=== PATIENT | male | born 1950 | race Caucasian/White ===

== ENCOUNTER → 2020-02-22 10:52 | Outpatient (BNVA) | payer MEDICARE, SELFPAY | PROVIDERS: Visit Provider Family Medicine | DX: E11.9 Type 2 diabetes mellitus without complications (principal); E11.628 Type 2 diabetes mellitus with other skin complications; L03.119 Cellulitis of unspecified part of limb; L97.509 Non-pressure chronic ulcer of other part of unspecified foot with unspecified severity; E11.621 Type 2 diabetes mellitus with foot ulcer; L08.9 Local infection of the skin and subcutaneous tissue, unspecified | CPT/HCPCS: 36415; 80053; 83036; 85025; 87070; 87077; 87184; 87205 ==

== ENCOUNTER 2020-02-26 09:47 | Outpatient (CLI) | payer MEDICARE, SELFPAY ==
--- NOTE | 2020-02-26 12:14 | XR_ITS ---
WS: [id number] Exam: XR foot LT min 3V* [id number] Date/Time of Exam: 02/26/2020 12:14 PM Reason For Exam: PAIN/REDNESS/NONHEALING ULCER AP lateral and oblique views of the left foot are submitted. There is dislocation of the base of the proximal phalanx of the fifth toe. No acute fracture noted. A reas of bone destruction identified in the distal fifth metatarsal as well as the proximal aspect of the proximal phalanx of the fifth toe suspicious for osteomyelitis. There is soft tissue swelling as well as soft tissue air along the fifth toe. No other areas of bone destruction are identified. Large calcaneal spurs. Soft tissue edema and air also extend along the dorsum of the mid foot. XR/XR foot LT min 3V* [id number] IMPRESSION: 1. Dislocation of the MP joint of the fifth toe. 2. Bony destruction identified at the proximal end of the proximal phalanx of the fifth toe as well as the head of the fifth metatarsal suspicious for osteom yelitis. There is marked soft tissue swelling about the fifth toe with soft tis stuart air as noted above.
== END 2020-02-26 09:48 | disposition home or self-care (01) ==
PROVIDERS: Visit Provider Nurse Practitioner Family
DX: E11.621 Type 2 diabetes mellitus with foot ulcer (principal); L97.523 Non-pressure chronic ulcer of other part of left foot with necrosis of muscle; M79.672 Pain in left foot
CPT/HCPCS: 11042; 73630; G0463

== ENCOUNTER 2020-03-04 09:08 | Outpatient (CLI) | payer MEDICARE, SELFPAY | END 2020-03-04 09:09 | disposition home or self-care (01) | LOC: WOUND 09:13 | PROVIDERS: Visit Provider Nurse Practitioner Family | DX: E11.621 Type 2 diabetes mellitus with foot ulcer (principal); L97.526 Non-pressure chronic ulcer of other part of left foot with bone involvement without evidence of necrosis | CPT/HCPCS: 11042; L3260 ==

== ENCOUNTER → 2020-03-05 08:45 | Day surgery (SDC) | payer MEDICARE, SELFPAY ==
--- NOTE | 2020-03-05 09:43 | XR_ITS ---
WS: [id number] CHEST XRAY TECHNIQUE: Portable chest. CLINICAL INFORMATION: picc placement COMPARISON: None. FINDINGS: Right PICC line with tip in the mid to distal SVC. No pneumothorax. Heart: Cardiomegaly. Lungs: Lungs are clear. No consolidation or pleural effusion. Bones: Normal visualized bony structures. XR/XR chest 1V portable [id number] IMPRESSION: Right PICC line with tip in the mid to distal SVC. No pneumothorax.
[2020-03-05 10:57] LABS: Alanine Aminotransferase 11 U/L (0-41); Albumin Level 3.6 g/dL (3.5-5.2); Alkaline Phosphatase 85 IU/L (40-130); Anion Gap 15.8 (5-19); Aspartate Amino Transferase 16 U/L (0-40); Blood Urea Nitrogen 12 mg/dL (8-23); Calcium 9.5 mg/dL (8.5-10.5); Carbon Dioxide 26 mmol/L (22-29); Chloride 100 mmol/L (98-107); Globulin 4.2 g/dL (1.3-4.6); Glomerular Filtration Rate 134.4 mL/min (90-130); Glucose 117 mg/dL (65-115); Osmolality Calculated 287 mOsm/kg (285-295); Potassium 3.8 mmol/L (3.5-5.1); Sodium 138 mmol/L (136-145); Total Bilirubin 0.7 mg/dL (0.15-1.2); Total Protein 7.8 g/dL (6.6-8.7)
[2020-03-05] MEDS: SODIUM CHLORIDE 0.9% IV (11:35)
[2020-03-05] MEDS: DAPTOMYCIN IV (11:35)
[2020-03-05 12:15] VITALS: BP 149/87; PULSE 118; RESP 18; TEMP 37.4; O2SAT 98; BMI 40.6
== END ==
PROVIDERS: Visit Provider Nurse Practitioner Family
DX: L97.526 Non-pressure chronic ulcer of other part of left foot with bone involvement without evidence of necrosis (principal); E11.621 Type 2 diabetes mellitus with foot ulcer
CPT/HCPCS: 36569; 36592; 71045; 80053; 96365; J0878

== ENCOUNTER 2020-03-11 09:13 | Outpatient (CLI) | payer MEDICARE, SELFPAY | END 2020-03-11 09:14 | disposition home or self-care (01) | LOC: WOUND 09:14 | PROVIDERS: Visit Provider Nurse Practitioner Family | DX: E11.621 Type 2 diabetes mellitus with foot ulcer (principal); L97.526 Non-pressure chronic ulcer of other part of left foot with bone involvement without evidence of necrosis | CPT/HCPCS: 11042 ==

== ENCOUNTER 2020-03-15 10:48 | Outpatient (CLI) | payer MEDICARE, SELFPAY ==
--- NOTE | 2020-03-15 10:57 | USCV_ITS ---
Richmond Viera Age: 69 Gender: M : 1950 Exam Date: 03/15/2020 11:03 Ordering Phys: Victorina Campos Technologist: Marlene Knowles [place] [facility] [place]ication: HISTORY: Lower extremity pain. PROCEDURES: Bilateral duplex Venous Insufficiency study of the Deep and Superficial systems was carried out according to normal protocol with the patient in supine positon for deep system and dependent position for the superficial system. FINDINGS: The right lower leg appears negative for thrombus. Reflux was noted in the proximal, distal, and below knee right GSV. There appears to be remains of an old thrombus in the proximal and mid left SSV. All other veins imaged in the left leg appear negative of thrombus. Reflux was noted in the left GSV distal to SFJ. The small saphenous vein on the left side appears to have thick johnston with some linear densities CONCLUSIONS 1. No evidence of DVT in the above-mentioned identifiable veins. 2. Significant venous reflux of greater than 500 ms were noted at the proximal, distal and below-knee greater saphenous vein segments on the right side. These venous segments where to 1.83, 1.09 and 1.04 cm deep from the surface. These venous segments where measuring 0.36 to 0.45 cm in diameter 3. On the left side, significant venous reflux of greater than 500 ms were noted just distal to the saphenofemoral junction. This segment was 1.9 cm deep from the surface 4. The venous dimensions and the depth from the surface are as mentioned above 5. The venous segments on the right side may be too superficial for ablation ? Dr Jaime Rogers MD [facility] (Electronically Signed) Final Date: 16 March 2020 18:26 S
== END 2020-03-15 10:49 | disposition home or self-care (01) ==
LOC: RAD 10:52 → WOUND 10:54
PROVIDERS: Visit Provider Nurse Practitioner Family
DX: M79.604 Pain in right leg (principal); M79.605 Pain in left leg; I87.2 Venous insufficiency (chronic) (peripheral)
CPT/HCPCS: 93970

== ENCOUNTER 2020-03-18 13:18 | Outpatient (CLI) | payer MEDICARE, SELFPAY ==
--- NOTE | 2020-03-18 14:21 | USCV_ITS ---
Richmond Viera Age: 69 Gender: M : 1950 Exam Date: 03/18/2020 14:15 Ordering Phys: Victoirna Campos Technologist: Vasquez Ibarra [place] [facility] [place]ication: NON HEALING ULCER RIGHT LEFT Brachial mmHg Brachial 117.00 mmHg Pressure (mmHg) Waveform Pressure (mmHg) Waveform 134.00 Above Knee 148.00 140.00 Below Knee 147.00 131.00 LEAD AUDITOR 143.00 130.00 DPA 129.00 1.12 Ankle/Brachial Index 1.22 101.00 Pre-Exercise Toe Pressure 95.00 Pre-Exercise Toe/Brachial Index 0.81 0.86 FINDINGS Normal resting ABIs and TBIs bilaterally Normal segmental pressure CONCLUSIONS No significant arterial obstruction, based on the above findings Dr Jaime Rogers MD [facility] (Electronically Signed) Final Date: 18 March 2020 17:46 S
== END 2020-03-18 13:19 | disposition home or self-care (01) ==
LOC: WOUND 13:20
PROVIDERS: Visit Provider Nurse Practitioner Family
DX: E11.621 Type 2 diabetes mellitus with foot ulcer (principal); L97.526 Non-pressure chronic ulcer of other part of left foot with bone involvement without evidence of necrosis
CPT/HCPCS: 11042; 93923

== ENCOUNTER 2020-03-25 13:48 | Outpatient (CLI) | payer MEDICARE, SELFPAY | END 2020-03-25 13:49 | disposition home or self-care (01) | LOC: WOUND 13:49 | PROVIDERS: Visit Provider Nurse Practitioner Family | DX: E11.621 Type 2 diabetes mellitus with foot ulcer (principal); L97.523 Non-pressure chronic ulcer of other part of left foot with necrosis of muscle | CPT/HCPCS: 11042 ==

== ENCOUNTER 2020-04-01 12:51 | Outpatient (CLI) | payer MEDICARE, SELFPAY | END 2020-04-01 12:52 | disposition home or self-care (01) | LOC: WOUND 12:52 | PROVIDERS: Visit Provider Nurse Practitioner Family | DX: E11.621 Type 2 diabetes mellitus with foot ulcer (principal); L97.522 Non-pressure chronic ulcer of other part of left foot with fat layer exposed | CPT/HCPCS: 11042 ==

== ENCOUNTER 2020-04-08 11:27 | Outpatient (CLI) | payer MEDICARE, SELFPAY ==
--- NOTE | 2020-04-08 11:34 | XR_ITS ---
WS: [id number] FOOT LEFT TECHNIQUE: 3 views of the left foot CLINICAL INFORMATION: wound COMPARISON: February 26, 2020 FINDINGS: Osteopenia. Progressed destructive changes involving the fifth metatarsal head and neck since the manoj or examination consistent with osteomyelitis. Overlying soft tissue ulceration. Plantar and Achilles calcaneal spurring. Dorsal and plantar soft tissue edema. XR/XR foot LT min 3V* [id number] IMPRESSION: Progressed osteomyelitis involving the fifth metatarsal head and neck
== END 2020-04-08 11:28 | disposition home or self-care (01) ==
LOC: RADWPI 11:31
PROVIDERS: PCP Family Medicine; Visit Provider Podiatrist Foot & Ankle Surgery
DX: L97.522 Non-pressure chronic ulcer of other part of left foot with fat layer exposed (principal); M86.8X7 Other osteomyelitis, ankle and foot; E11.622 Type 2 diabetes mellitus with other skin ulcer
CPT/HCPCS: 11042; 73630

== ENCOUNTER 2020-04-08 13:03 | Outpatient (CLI) | payer MEDICARE, SELFPAY | END 2020-04-08 13:04 | disposition home or self-care (01) | LOC: WOUND 13:04 | PROVIDERS: PCP Family Medicine; Visit Provider Nurse Practitioner Family | DX: E11.621 Type 2 diabetes mellitus with foot ulcer (principal); L97.522 Non-pressure chronic ulcer of other part of left foot with fat layer exposed | CPT/HCPCS: 11042 ==

== ENCOUNTER 2020-04-22 10:50 | Outpatient (CLI) | payer MEDICARE, SELFPAY | END 2020-04-22 10:51 | disposition home or self-care (01) | LOC: WOUND 10:51 | PROVIDERS: PCP Family Medicine; Visit Provider Nurse Practitioner Family | DX: E11.621 Type 2 diabetes mellitus with foot ulcer (principal); L97.522 Non-pressure chronic ulcer of other part of left foot with fat layer exposed | CPT/HCPCS: 11042 ==

== ENCOUNTER 2020-04-29 10:27 | Outpatient (CLI) | payer MEDICARE, SELFPAY | END 2020-04-29 10:28 | disposition home or self-care (01) | LOC: WOUND 10:27 | PROVIDERS: PCP Family Medicine; Visit Provider Nurse Practitioner Family | DX: E11.621 Type 2 diabetes mellitus with foot ulcer (principal); L97.522 Non-pressure chronic ulcer of other part of left foot with fat layer exposed | CPT/HCPCS: 11042 ==

== ENCOUNTER 2020-05-06 10:21 | Outpatient (CLI) | payer MEDICARE, SELFPAY | END 2020-05-06 10:22 | disposition home or self-care (01) | LOC: WOUND 10:22 | PROVIDERS: PCP Family Medicine; Visit Provider Nurse Practitioner Family | DX: E11.621 Type 2 diabetes mellitus with foot ulcer (principal); L97.522 Non-pressure chronic ulcer of other part of left foot with fat layer exposed | CPT/HCPCS: 11042 ==

== ENCOUNTER 2020-05-13 10:55 | Outpatient (CLI) | payer MEDICARE, SELFPAY | END 2020-05-13 10:56 | disposition home or self-care (01) | LOC: WOUND 10:56 | PROVIDERS: PCP Family Medicine; Visit Provider Nurse Practitioner Family | DX: E11.621 Type 2 diabetes mellitus with foot ulcer (principal); L97.522 Non-pressure chronic ulcer of other part of left foot with fat layer exposed | CPT/HCPCS: 11042 ==

== ENCOUNTER 2020-05-27 10:16 | Outpatient (CLI) | payer MEDICARE, SELFPAY | END 2020-05-27 10:17 | disposition home or self-care (01) | LOC: WOUND 10:17 | PROVIDERS: PCP Family Medicine; Visit Provider Nurse Practitioner Family | DX: Z09 Encounter for follow-up examination after completed treatment for conditions other than malignant neoplasm (principal) | CPT/HCPCS: 99212 ==

== ENCOUNTER → 2020-06-10 14:30 | Outpatient (BNVA) | payer MEDICARE, SELFPAY | PROVIDERS: PCP Family Medicine; Visit Provider Podiatrist Foot & Ankle Surgery | DX: L97.522 Non-pressure chronic ulcer of other part of left foot with fat layer exposed (principal) | CPT/HCPCS: 73630 ==

== ENCOUNTER 2020-06-11 13:51 | Outpatient (CLI) | payer MEDICARE, SELFPAY | END 2020-06-11 13:52 | disposition home or self-care (01) | LOC: WOUND 13:53 | PROVIDERS: PCP Family Medicine; Visit Provider Thoracic Surgery (Cardiothoracic Vascular Surgery) | DX: E11.621 Type 2 diabetes mellitus with foot ulcer (principal); L97.522 Non-pressure chronic ulcer of other part of left foot with fat layer exposed | CPT/HCPCS: 11042 ==

== ENCOUNTER 2020-06-25 10:47 | Outpatient (CLI) | payer MEDICARE, SELFPAY | END 2020-06-25 10:48 | disposition home or self-care (01) | LOC: WOUND 10:48 | PROVIDERS: PCP Family Medicine; Visit Provider Nurse Practitioner Family | DX: E11.621 Type 2 diabetes mellitus with foot ulcer (principal); L97.522 Non-pressure chronic ulcer of other part of left foot with fat layer exposed | CPT/HCPCS: 11042 ==

== ENCOUNTER 2020-07-02 09:32 | Outpatient (CLI) | payer MEDICARE, SELFPAY | END 2020-07-02 09:33 | disposition home or self-care (01) | LOC: WOUND 09:33 | PROVIDERS: PCP Family Medicine; Visit Provider Thoracic Surgery (Cardiothoracic Vascular Surgery) | DX: Z09 Encounter for follow-up examination after completed treatment for conditions other than malignant neoplasm (principal) | CPT/HCPCS: 99212 ==

== ENCOUNTER → 2020-07-05 15:52 | Outpatient (BNVA) | payer MEDICARE, SELFPAY | PROVIDERS: PCP Family Medicine; Visit Provider Podiatrist Foot & Ankle Surgery | DX: M86.672 Other chronic osteomyelitis, left ankle and foot (principal); E11.628 Type 2 diabetes mellitus with other skin complications; L03.119 Cellulitis of unspecified part of limb; E11.621 Type 2 diabetes mellitus with foot ulcer; L97.509 Non-pressure chronic ulcer of other part of unspecified foot with unspecified severity | CPT/HCPCS: 73630 ==

== ENCOUNTER → 2020-07-08 10:17 | Outpatient (BNVA) | payer MEDICARE, SELFPAY | PROVIDERS: PCP Family Medicine; Visit Provider Podiatrist Foot & Ankle Surgery | DX: E11.621 Type 2 diabetes mellitus with foot ulcer (principal); E11.628 Type 2 diabetes mellitus with other skin complications; L03.119 Cellulitis of unspecified part of limb; L97.509 Non-pressure chronic ulcer of other part of unspecified foot with unspecified severity; M86.672 Other chronic osteomyelitis, left ankle and foot | CPT/HCPCS: 87635 ==

== ENCOUNTER 2020-07-12 15:37 | Day surgery (SDC) | payer MEDICARE, SELFPAY ==
[2020-07-11 16:43] VITALS: BMI 39.9
[2020-07-12] VITALS (9 sets, daily range): BP systolic 89–136; BP diastolic 61–100; PULSE 68–96; RESP 16–20; TEMP 36.4–37; O2SAT 94–99
[2020-07-12 09:42] LABS: Glucose Point of Care 136 mg/dL (70-110)
--- NOTE | 2020-07-12 09:57 | ANES.PREANE2 ---
Pre-Anesthetic Assessment Pre-Anesthetic Assessment: Height/Weight: Height 1.75 m Weight 122.47 kg Temp Pulse Resp BP Pulse Ox 98.6 F 96 18 136/100 96 07/12/20 09:45 07/12/20 09:45 07/12/20 09:45 07/12/20 09:45 07/12/20 09:45 Preop Diagnosis: Osteomyelitis left foot Proposed Procedure: Operation Date: 07/12/20 10:45 Proposed Procedures p Left fifth toe amputation versus resection of left fifth metatarsal head/ CPT codes: 13626 versus possible 52541 M86.672(Left) - Marc Samaniego, DPM Was Beta Mishel taken within 24 hours: N/A Last intake: Intake Last Liquid Date 07/11/20 Last Liquid Time 22:00 Last Solid Date 07/11/20 Last Solid Time 22:00 Social: Social History: No alcohol and No tobacco (h/o smoking) Exam: Pre-Anes Outpt Exam: alert, oriented x 3, clear to auscultation bilaterally and regular rate & rhythm Airway: Submandibular: WNL Cervical ROM: WNL MP: 2 Additional comments: Poor dentition, missing several Pulmonary: Pulmonary: COPD CV/HEM: CV/HEM: Afib and HTN Metabolic: Metabolic: DM and Morbid obesity Anesthetic Plan: ASA status: 3 Anesthesia: MAC Risk of > 500 ml blood loss (7ml/kg in children): No PFSH Anesthesia PFSH: Medical History Hypertension Neuropathy Surgical History H/O umbilical hernia repair with mesh History of appendectomy History of cholecystectomy History of colon resection History of tonsillectomy Social History Smoking and tobacco status: former smoker Quit status (tobacco): has quit using tobacco Year quit tobacco: 1979 Alcohol intake: never Data Anesthesia Other Labs: Laboratory Results - last 48 hr 07/12/20 09:39 POC Glucose 136 H Cardiac Studies: No Data to Display
[2020-07-12] MEDS: sodium chloride 0.9% 1,000 ML 30 ML IV (09:59)
--- NOTE | 2020-07-12 12:32 | P.HPUD_ITS ---
Surgery/Procedure H&P Update DATE OF PROCEDURE: July 12, 2020 DATE H&P PERFORMED: 07/05/20 H&P UPDATE INFORMATION: I have reviewed H&P completed within last 30 days, I have examined patient prior to procedure, No changes to prior documentation and H&P is in [facility] [place] EMR on date indicated PREOP DIAGNOSIS: Osteomyelitis left foot PLANNED PROCEDURE: Operation Date: 07/12/20 10:45 Proposed Procedures p Left fifth toe amputation versus resection of left fifth metatarsal head/ CPT codes: 81653 versus possible 33649 M86.672(Left) - Marc Samaniego DPM
[2020-07-12] MEDS: clindamycin 600 MG/50 ML PREMIX 25 MG IV (13:05)
--- NOTE | 2020-07-12 14:36 | ANE.PACU2 ---
Inpatient post-anesthesia follow up: Airway intact: Yes Vital signs: Temperature 97.5 F Pulse Rate 89 Respiratory Rate 18 Blood Pressure 115/85 Pulse Oximetry 99 Oxygen Delivery Me thod Room Air Oxygen Flow Rate 6 Fraction of Inspir ed Oxygen Hydration adequate: Yes Nausea and vomiting: No Pain level: 1 Mental status: Baseline
--- NOTE | 2020-07-12 18:23 | P.OP_ITS ---
Operative Report Date of procedure: July 12, 2020 Pre-op Diagnosis: Osteomyelitis left foot Post-op diagnosis: same Post-op Findings: Devitalized soft tissue and bone down to and including fifth metatarsal head left foot Procedure Done: Amputation of left fifth toe and left fifth metatarsal head CPT code 38550 Implants: 4-0 Vicryl, 3-0 nylon. Specimens removed/disposition: Left fifth metatarsal head sent to microbiology for Gram stain and culture Pathology: Left fifth toe sent to pathology for permanent. Surgeon: Marc Samaniego D.P.M. Spectrographic Analyst: Ashanti Estimated blood loss: Less than 10 mL Tourniquet time: 15 minutes IV fluids: None Urine output: None Complications: None Findings: Devitalized fifth metatarsal head with clean margin at resection. Condition: stable Disposition: PACU Brief History: Patient is a diabetic male with recalcitrant wound subfifth metatarsal head left foot and osteomyelitis of left fifth metatarsal head. Recommended partial fifth ray amputation surgical offloading as well as eradication of infection. Patient is agreeable. Risks include pain, bleeding, numbness, infection, persistent osteomyelitis. Need for higher level of amputation, transfer pressure, transfer lesion, the fourth metatarsal head. Disfigurement of the foot. Inherent risks of anesthesia. Patient is agreeable wishes to proceed. Informed consent is signed, initialed patient's left foot, answered all questions to patient satisfaction wishes to proceed. He is written, expressed or implied. Procedure: Under mild sedation the patient is brought to the operating room and placed on the operating table in supine position. A timeout was performed. Anesthesia was then administered by the anesthesia service. Local anesthesia injected by myself consisting of 0.5% Marcaine plain and a reverse Agudelo block fashion to the left foot. Well-padded pneumatic tourniquet was applied to the left high calf. Left lower extremity was then scrubbed, prepped and draped utilizing normal aseptic technique. Left foot was elevated and the tourniquet was inflated to 250 mmHg. Attention was directed to the left foot fifth toe where a tennis racquet incision was carried out down to bone at the distal aspect of the left fifth metatarsal encompassing the base of the left fifth toe this was then disarticul ated at the metatarsophalangeal joint passed from operative field this will be sent to pathology for permanent. Head of the fifth metatarsal was then transected beveling the edge to reduce bony prominence fifth metatarsal head was sent to microbiology for Gram stain and culture. Incision site was flushed with copious amounts of sterile saline solution. All bleeders were ligated and cauterized as necessary. Subcutaneous tissue and deep fascia reapproximated utilizing 3-0 Vicryl. Skin reapproximated utilizing 3-0 nylon. Incision site was dressed with Adaptic, sterile 4 x 4, Kerlix and Vicente wrap. Cam boot was then applied to the left lower extremity. Tourniquet was deflated and a prompt hyperemic response was noted to the distal digits of the left foot toes 1 through 4. Patient tolerated procedure and anesthesia well and was transferred to the PACU with vital signs stable and vascular status intact. He was given a prescription for hydrocodone to be taken judiciously as needed for pain states that he will likely not fill this prescription due to underlying neuropathy. He is dispensed crutches and is to be nonweightbearing to the left foot at this time. He will follow up in podiatry clinic next week for first dressing change was given my cell phone number to contact with any postoperative questions or concerns.
== END 2020-07-12 16:00 | disposition home or self-care (01) ==
LOC: OR 15:37
PROVIDERS: PCP Family Medicine; Visit Provider Podiatrist Foot & Ankle Surgery
PROC: (CPT 28810; principal; 2020-07-12 10:45)
DX: M86.8X7 Other osteomyelitis, ankle and foot (principal); J44.9 Chronic obstructive pulmonary disease, unspecified; I48.91 Unspecified atrial fibrillation; I10 Essential (primary) hypertension; E11.9 Type 2 diabetes mellitus without complications; E66.01 Morbid (severe) obesity due to excess calories; Z68.39 Body mass index [BMI] 39.0-39.9, adult
CPT/HCPCS: 28810; 36416; 82962; 87070; 87176; 87205; 88305; J2250; J2704; J3010; J3490; J7030; L4361

== ENCOUNTER 2020-07-19 10:58 | Outpatient (CLI) | payer MEDICARE, SELFPAY ==
--- NOTE | 2020-07-19 11:12 | XR_ITS ---
WS: [id number] XR foot LT min 3V* [id number] REASON FOR EXAM: post op FINDINGS: Compared to previous examination of 07/05/2020, there has been amputation of the left fifth toe with re moval of the phalanges and the distal half of the fifth metatarsal. No bony fragments or other radiop aque soft tissue abnormality at the amputation site. No other focal bony abnormality. Mild degenerative changes in the remaining toes. XR/XR foot LT min 3V* [id number] IMPRESSION: Status post amputation left fifth toe as above.
== END 2020-07-19 10:59 | disposition home or self-care (01) ==
LOC: RAD 11:06
PROVIDERS: PCP Family Medicine; Visit Provider Podiatrist Foot & Ankle Surgery
DX: Z98.890 Other specified postprocedural states (principal); Z89.422 Acquired absence of other left toe(s)
CPT/HCPCS: 73630

== ENCOUNTER → 2020-07-26 15:11 | Outpatient (BNVA) | payer MEDICARE, SELFPAY | PROVIDERS: PCP Family Medicine; Visit Provider Podiatrist Foot & Ankle Surgery | DX: Z98.890 Other specified postprocedural states (principal) | CPT/HCPCS: 73630 ==

== ENCOUNTER → 2021-02-13 07:49 | Outpatient (BNVA) | payer MEDICARE, SELFPAY | PROVIDERS: PCP Family Medicine; Visit Provider Family Medicine | DX: I73.9 Peripheral vascular disease, unspecified (principal); E11.628 Type 2 diabetes mellitus with other skin complications; L03.119 Cellulitis of unspecified part of limb; E11.621 Type 2 diabetes mellitus with foot ulcer; L97.509 Non-pressure chronic ulcer of other part of unspecified foot with unspecified severity; M79.89 Other specified soft tissue disorders; I83.012 Varicose veins of right lower extremity with ulcer of calf; L97.212 Non-pressure chronic ulcer of right calf with fat layer exposed; I48.91 Unspecified atrial fibrillation | CPT/HCPCS: 80053 ==

== ENCOUNTER → 2021-03-10 14:02 | Outpatient (BNVA) | payer MEDICARE, SELFPAY | PROVIDERS: PCP Family Medicine; Visit Provider Family Medicine | DX: I50.9 Heart failure, unspecified (principal); E11.621 Type 2 diabetes mellitus with foot ulcer; L97.509 Non-pressure chronic ulcer of other part of unspecified foot with unspecified severity; I83.012 Varicose veins of right lower extremity with ulcer of calf; L97.212 Non-pressure chronic ulcer of right calf with fat layer exposed; I73.9 Peripheral vascular disease, unspecified; I48.21 Permanent atrial fibrillation; E11.9 Type 2 diabetes mellitus without complications; E11.628 Type 2 diabetes mellitus with other skin complications; L03.119 Cellulitis of unspecified part of limb | CPT/HCPCS: 83036; 85025 ==

== ENCOUNTER 2021-06-18 09:44 | Outpatient (CLI) | payer MEDICARE, SELFPAY ==
--- NOTE | 2021-06-18 10:15 | USCV_ITS ---
Richmond Viera Age: 70 Gender: M : 1950 Exam Date: 06/18/2021 10:19 Ordering Phys: Britton Jessica M.D ([email or web address]) Technologist: Exam Location: [facility] [place] Indication: AFIB BP: 190 / 100 HR: 43 Rhythm: Atrial fibrillation Technical Quality: Adequate MEASUREMENTS (Male / Female) Normal Values 2D ECHO LV Diastolic Diameter PLAX 5.3 cm 4.2 - 5.9 / 3.9 - 5.3 cm LV Systolic Diameter PLAX 4.7 cm IVS Diastolic Thickness 1.7 cm 0.6 - 1.0 / 0.6 - 0.9 cm IVS Systolic Thickness 1.4 cm LVPW Diastolic Thickness 1.6 cm 0.6 - 1.0 / 0.6 - 0.9 cm LVPW Systolic Thickness 1.0 cm LVOT Diameter 2.1 cm LV Ejection Fraction 2D Teich 33.9 % LV Ejection Fraction MOD 2C 22.9 % LV Ejection Fraction 2C AL 23.3 % LA Diameter 4.7 cm Aorta at Sinotubular Diameter 2.5 cm M-MODE Aortic Annulus Diameter 2.5 cm LA Ao Ratio MM 1.9 MV E Point Septal Separation 1.6 cm DOPPLER AV Peak Velocity 101.0 cm/s LVOT Peak Velocity 52.0 cm/s AV Area Cont Eq vti 1.3 cm squared AV Area Cont Eq pk 1.7 cm squared MV Area PHT 5.8 cm squared Mitral E to A Ratio 4.0 MV E' Velocity 53.0 cm/s Mitral E to MV E' Ratio 17.6 Mitral E to LV E' Lateral Ratio 15.2 Mitral E to LV E' Septal Ratio 21.5 TR Peak Velocity 250.0 cm/s TR Peak Gradient 25.0 mmHg TV Peak E Velocity 87.0 cm/s Right Atrial Pressure 8.0 mmHg Pulmonary Artery Systolic Pressu 33.0 mmHg PV Peak Velocity 78.0 cm/s RV Acceleration Time 0.1 s FINDINGS Left Ventricle Normal left ventricular size. LV systolic function is mildly reduced with EF of 45-50%. Mild global hypokinesis is seen. Diastolic function is indeterminate because of atrial fibrillation Right Ventricle The right ventricle is normal in size and function. Right Atrium The right atrium is normal in size. Left Atrium The left atrium is severely dilated Mitral Valve Structurally normal mitral valve without significant stenosis or prolapse. There is mild mitral regurgitation. Aortic Valve Structurally normal aortic valve without significant sclerosis or stenosis. There is no aortic regurgitation. Tricuspid Valve Structurally normal tricuspid valve without significant stenosis. Trace tricuspid regurgitation. Insufficient TR jet to calculate RVSP Pulmonic Valve Structurally normal pulmonic valve without significant stenosis. There is no pulmonic regurgitation. Pericardium Normal pericardium without effusion. Aorta Normal ascending aorta dimension. CONCLUSIONS LV systolic function is mildly reduced with EF of 45-50%. Mild global hypokinesis. Diastolic function is indeterminate because of atrial fibrillation Left atrium is severely enlarged Mild mitral regurgitation Trace tricuspid regurgitation. Insufficient TR jet to calculate RVSP No comparison studies are available Britton Jesisca MD (Electronically Signed) Final Date: 26 June 2021 11:39 S
== END 2021-06-18 09:45 | disposition home or self-care (01) ==
PROVIDERS: PCP Family Medicine; Visit Provider Internal Medicine
DX: I48.91 Unspecified atrial fibrillation (principal); I08.1 Rheumatic disorders of both mitral and tricuspid valves
CPT/HCPCS: 93306

== ENCOUNTER → 2021-07-07 14:20 | Outpatient (BNVA) | payer MEDICARE, SELFPAY | PROVIDERS: PCP Family Medicine; Visit Provider Internal Medicine | DX: I50.9 Heart failure, unspecified (principal); I48.21 Permanent atrial fibrillation; I73.9 Peripheral vascular disease, unspecified; E11.621 Type 2 diabetes mellitus with foot ulcer; L97.509 Non-pressure chronic ulcer of other part of unspecified foot with unspecified severity; Z87.891 Personal history of nicotine dependence | CPT/HCPCS: 99214 ==

== ENCOUNTER → 2021-10-08 11:28 | Outpatient (BNVA) | payer MEDICARE, SELFPAY | PROVIDERS: PCP Family Medicine; Visit Provider Family Medicine | DX: E11.9 Type 2 diabetes mellitus without complications (principal); E11.621 Type 2 diabetes mellitus with foot ulcer; L97.509 Non-pressure chronic ulcer of other part of unspecified foot with unspecified severity; D75.89 Other specified diseases of blood and blood-forming organs; I50.9 Heart failure, unspecified | CPT/HCPCS: 80053; 80061; 82607; 83036; 85025 ==

== ENCOUNTER → 2022-04-06 13:39 | Outpatient (BNVA) | payer MEDICARE, SELFPAY | PROVIDERS: PCP Family Medicine; Visit Provider Internal Medicine | DX: I11.0 Hypertensive heart disease with heart failure (principal); I50.9 Heart failure, unspecified; I48.21 Permanent atrial fibrillation; I73.9 Peripheral vascular disease, unspecified; Z79.84 Long term (current) use of oral hypoglycemic drugs; E11.621 Type 2 diabetes mellitus with foot ulcer; Z87.891 Personal history of nicotine dependence | CPT/HCPCS: 99214 ==

== ENCOUNTER → 2022-04-08 10:49 | Outpatient (BNVA) | payer MEDICARE, SELFPAY | PROVIDERS: PCP Family Medicine; Visit Provider Family Medicine | DX: E11.9 Type 2 diabetes mellitus without complications (principal); E11.621 Type 2 diabetes mellitus with foot ulcer; L97.509 Non-pressure chronic ulcer of other part of unspecified foot with unspecified severity | CPT/HCPCS: 83036 ==

== ENCOUNTER → 2022-10-07 10:18 | Outpatient (BNVA) | payer MEDICARE, SELFPAY | PROVIDERS: PCP Family Medicine; Visit Provider Family Medicine | DX: E11.9 Type 2 diabetes mellitus without complications (principal); I50.9 Heart failure, unspecified | CPT/HCPCS: 83036; 85025 ==

== ENCOUNTER → 2022-10-08 09:23 | Outpatient (BNVA) | payer MEDICARE, SELFPAY | PROVIDERS: PCP Family Medicine; Visit Provider Family Medicine | DX: E11.9 Type 2 diabetes mellitus without complications (principal) | CPT/HCPCS: 80061 ==

== ENCOUNTER → 2023-01-05 13:28 | Outpatient (BNVA) | payer MEDICARE, SELFPAY | PROVIDERS: PCP Family Medicine; Visit Provider Internal Medicine | DX: I48.21 Permanent atrial fibrillation (principal); I50.9 Heart failure, unspecified; I73.9 Peripheral vascular disease, unspecified; E11.621 Type 2 diabetes mellitus with foot ulcer; L97.509 Non-pressure chronic ulcer of other part of unspecified foot with unspecified severity; Z87.891 Personal history of nicotine dependence; Z79.84 Long term (current) use of oral hypoglycemic drugs | CPT/HCPCS: 80048; 83880; 99214 ==

== ENCOUNTER 2023-02-08 13:37 | Outpatient (CLI) | payer MEDICARE, SELFPAY ==
[2023-02-08 14:33] LABS: Anion Gap 14.3 (5-19); Blood Urea Nitrogen 20 mg/dL (8-23); Calcium 9.1 mg/dL (8.5-10.5); Carbon Dioxide 23 mmol/L (22-29); Chloride 97 mmol/L (98-107); Glomerular Filtration Rate 95.6 mL/min (90-130); Glucose 148 mg/dL (65-115); NT Pro B Type Natriuretic Pept 709 pg/mL (0-125); Osmolality Calculated 275 mOsm/kg (285-295); Potassium 4.3 mmol/L (3.5-5.1); Sodium 130 mmol/L (136-145)
== END 2023-02-08 13:38 | disposition home or self-care (01) ==
LOC: LAB 13:39
PROVIDERS: PCP Family Medicine; Visit Provider Internal Medicine
DX: I48.21 Permanent atrial fibrillation (principal); I50.9 Heart failure, unspecified; I73.9 Peripheral vascular disease, unspecified
CPT/HCPCS: 36415; 80048; 83880

== ENCOUNTER → 2023-04-07 09:39 | Outpatient (BNVA) | payer MEDICARE, SELFPAY | PROVIDERS: PCP Family Medicine; Visit Provider Family Medicine | DX: E11.9 Type 2 diabetes mellitus without complications (principal) | CPT/HCPCS: 83036 ==

== ENCOUNTER → 2023-06-23 09:40 | Outpatient (BNVA) | payer MEDICARE, SELFPAY | PROVIDERS: PCP Family Medicine; Visit Provider Podiatrist Foot & Ankle Surgery | DX: E11.621 Type 2 diabetes mellitus with foot ulcer; S91.205A Unspecified open wound of left lesser toe(s) with damage to nail, initial encounter; X58.XXXA Exposure to other specified factors, initial encounter; E11.69 Type 2 diabetes mellitus with other specified complication; Z89.421 Acquired absence of other right toe(s); L97.518 Non-pressure chronic ulcer of other part of right foot with other specified severity; Z79.84 Long term (current) use of oral hypoglycemic drugs | CPT/HCPCS: 99213 ==

== ENCOUNTER → 2023-09-14 14:53 | Outpatient (BNVA) | payer MEDICARE, SELFPAY | PROVIDERS: PCP Family Medicine; Visit Provider Podiatrist Foot & Ankle Surgery | DX: I73.9 Peripheral vascular disease, unspecified; L60.3 Nail dystrophy; L84 Corns and callosities; Z89.422 Acquired absence of other left toe(s); E11.69 Type 2 diabetes mellitus with other specified complication; Z79.84 Long term (current) use of oral hypoglycemic drugs | CPT/HCPCS: 11055; 11721 ==

== ENCOUNTER → 2023-10-05 14:23 | Outpatient (BNVA) | payer MEDICARE, SELFPAY | PROVIDERS: PCP Family Medicine; Visit Provider Internal Medicine | DX: I11.0 Hypertensive heart disease with heart failure (principal); I50.9 Heart failure, unspecified; I48.21 Permanent atrial fibrillation; I73.9 Peripheral vascular disease, unspecified; E11.621 Type 2 diabetes mellitus with foot ulcer; L97.509 Non-pressure chronic ulcer of other part of unspecified foot with unspecified severity; Z87.891 Personal history of nicotine dependence; Z79.84 Long term (current) use of oral hypoglycemic drugs | CPT/HCPCS: 99214 ==

== ENCOUNTER → 2023-10-11 10:25 | Outpatient (BNVA) | payer MEDICARE, SELFPAY | PROVIDERS: PCP Family Medicine; Visit Provider Nurse Practitioner Family | DX: I50.9 Heart failure, unspecified (principal); E11.621 Type 2 diabetes mellitus with foot ulcer; L97.509 Non-pressure chronic ulcer of other part of unspecified foot with unspecified severity | CPT/HCPCS: 80053; 80061; 82043; 82306; 83036; 83735 ==

== ENCOUNTER → 2023-12-15 14:13 | Outpatient (BNVA) | payer MEDICARE, SELFPAY | PROVIDERS: PCP Nurse Practitioner Family; Visit Provider Podiatrist Foot & Ankle Surgery | DX: E11.621 Type 2 diabetes mellitus with foot ulcer (principal); I73.9 Peripheral vascular disease, unspecified; L60.3 Nail dystrophy; L84 Corns and callosities; L97.528 Non-pressure chronic ulcer of other part of left foot with other specified severity; Z89.422 Acquired absence of other left toe(s); Z79.84 Long term (current) use of oral hypoglycemic drugs | CPT/HCPCS: 11055; 11721 ==

== ENCOUNTER → 2024-02-02 10:48 | Outpatient (BNVA) | payer MEDICARE, SELFPAY | PROVIDERS: PCP Nurse Practitioner Family; Visit Provider Nurse Practitioner Family | DX: E11.621 Type 2 diabetes mellitus with foot ulcer (principal); L97.509 Non-pressure chronic ulcer of other part of unspecified foot with unspecified severity; E83.41 Hypermagnesemia | CPT/HCPCS: 83036; 83735 ==

== ENCOUNTER → 2024-03-01 15:00 | Outpatient (BNVA) | payer MEDICARE, SELFPAY | PROVIDERS: PCP Nurse Practitioner Family; Visit Provider Podiatrist Foot & Ankle Surgery | DX: I73.9 Peripheral vascular disease, unspecified (principal); Z89.422 Acquired absence of other left toe(s); L60.3 Nail dystrophy; L84 Corns and callosities; E11.42 Type 2 diabetes mellitus with diabetic polyneuropathy | CPT/HCPCS: 99213 ==

== ENCOUNTER → 2024-05-08 09:30 | Outpatient (BNVA) | payer MEDICARE, SELFPAY | PROVIDERS: PCP Nurse Practitioner Family; Visit Provider Nurse Practitioner Family | DX: E55.9 Vitamin D deficiency, unspecified (principal); E83.41 Hypermagnesemia; I50.9 Heart failure, unspecified; M10.9 Gout, unspecified; E11.621 Type 2 diabetes mellitus with foot ulcer; L97.509 Non-pressure chronic ulcer of other part of unspecified foot with unspecified severity | CPT/HCPCS: 80053; 80061; 82043; 82306; 83036; 83721; 83735; 84550 ==

== ENCOUNTER → 2024-06-26 10:35 | Outpatient (BNVA) | payer MEDICARE, SELFPAY | PROVIDERS: PCP Nurse Practitioner Family; Visit Provider Podiatrist Foot & Ankle Surgery | DX: E11.8 Type 2 diabetes mellitus with unspecified complications (principal); L60.3 Nail dystrophy; L84 Corns and callosities; I73.9 Peripheral vascular disease, unspecified; E11.42 Type 2 diabetes mellitus with diabetic polyneuropathy; Z89.422 Acquired absence of other left toe(s) | CPT/HCPCS: 11055; 11721 ==

== ENCOUNTER → 2024-08-14 10:30 | Outpatient (BNVA) | payer MEDICARE, SELFPAY | PROVIDERS: PCP Nurse Practitioner Family; Visit Provider Nurse Practitioner Family | DX: E11.621 Type 2 diabetes mellitus with foot ulcer (principal); L97.509 Non-pressure chronic ulcer of other part of unspecified foot with unspecified severity | CPT/HCPCS: 83036 ==

== ENCOUNTER → 2024-09-19 11:13 | Outpatient (BNVA) | payer MEDICARE, SELFPAY | PROVIDERS: PCP Nurse Practitioner Family; Visit Provider Podiatrist Foot & Ankle Surgery | DX: E11.42 Type 2 diabetes mellitus with diabetic polyneuropathy (principal); L60.3 Nail dystrophy; L84 Corns and callosities; E11.8 Type 2 diabetes mellitus with unspecified complications; I73.9 Peripheral vascular disease, unspecified; L03.116 Cellulitis of left lower limb; R60.0 Localized edema; I83.029 Varicose veins of left lower extremity with ulcer of unspecified site; L97.929 Non-pressure chronic ulcer of unspecified part of left lower leg with unspecified severity; Z89.422 Acquired absence of other left toe(s); I83.021 Varicose veins of left lower extremity with ulcer of thigh; I83.022 Varicose veins of left lower extremity with ulcer of calf; L97.922 Non-pressure chronic ulcer of unspecified part of left lower leg with fat layer exposed; Z79.84 Long term (current) use of oral hypoglycemic drugs | CPT/HCPCS: 11055; 11721; 29581; 99214 ==

== ENCOUNTER → 2024-09-26 11:20 | Outpatient (BNVA) | payer MEDICARE, SELFPAY | PROVIDERS: PCP Nurse Practitioner Family; Visit Provider Podiatrist Foot & Ankle Surgery | DX: E11.42 Type 2 diabetes mellitus with diabetic polyneuropathy (principal); L84 Corns and callosities; L03.116 Cellulitis of left lower limb; I73.9 Peripheral vascular disease, unspecified; R60.0 Localized edema; I83.029 Varicose veins of left lower extremity with ulcer of unspecified site; L97.929 Non-pressure chronic ulcer of unspecified part of left lower leg with unspecified severity; E11.8 Type 2 diabetes mellitus with unspecified complications; E11.621 Type 2 diabetes mellitus with foot ulcer; L97.922 Non-pressure chronic ulcer of unspecified part of left lower leg with fat layer exposed; Z89.422 Acquired absence of other left toe(s); I83.028 Varicose veins of left lower extremity with ulcer other part of lower leg; Z79.84 Long term (current) use of oral hypoglycemic drugs | CPT/HCPCS: 11055; 29581; 99213 ==

== ENCOUNTER → 2024-10-02 10:26 | Outpatient (BNVA) | payer MEDICARE, SELFPAY | PROVIDERS: PCP Nurse Practitioner Family; Visit Provider Podiatrist Foot & Ankle Surgery | DX: I73.9 Peripheral vascular disease, unspecified (principal); E11.42 Type 2 diabetes mellitus with diabetic polyneuropathy; R60.0 Localized edema; Z89.422 Acquired absence of other left toe(s); Z79.84 Long term (current) use of oral hypoglycemic drugs | CPT/HCPCS: 99213 ==

== ENCOUNTER → 2024-11-13 10:45 | Outpatient (BNVA) | payer MEDICARE, SELFPAY | PROVIDERS: PCP Nurse Practitioner Family; Visit Provider Nurse Practitioner Family | DX: E11.621 Type 2 diabetes mellitus with foot ulcer (principal); L97.509 Non-pressure chronic ulcer of other part of unspecified foot with unspecified severity; I48.21 Permanent atrial fibrillation; E11.9 Type 2 diabetes mellitus without complications; M10.9 Gout, unspecified; E55.9 Vitamin D deficiency, unspecified | CPT/HCPCS: 80053; 80061; 82043; 82306; 83036; 83735; 84550 ==

== ENCOUNTER → 2024-12-05 13:04 | Outpatient (BNVA) | payer MEDICARE, SELFPAY | PROVIDERS: PCP Nurse Practitioner Family; Visit Provider Nurse Practitioner Family | DX: E11.621 Type 2 diabetes mellitus with foot ulcer (principal); L97.509 Non-pressure chronic ulcer of other part of unspecified foot with unspecified severity | CPT/HCPCS: 82043 ==

== ENCOUNTER → 2024-12-19 11:07 | Outpatient (BNVA) | payer MEDICARE, SELFPAY | PROVIDERS: PCP Nurse Practitioner Family; Visit Provider Podiatrist Foot & Ankle Surgery | DX: E11.42 Type 2 diabetes mellitus with diabetic polyneuropathy (principal); L60.3 Nail dystrophy; L84 Corns and callosities; E11.8 Type 2 diabetes mellitus with unspecified complications; I73.9 Peripheral vascular disease, unspecified; R60.0 Localized edema; Z89.422 Acquired absence of other left toe(s); Z79.84 Long term (current) use of oral hypoglycemic drugs | CPT/HCPCS: 11055; 11721 ==

== ENCOUNTER → 2025-03-02 10:00 | Outpatient (BNVA) | payer MEDICARE, SELFPAY | PROVIDERS: PCP Nurse Practitioner Family; Visit Provider Nurse Practitioner Family | DX: E11.621 Type 2 diabetes mellitus with foot ulcer (principal); L97.509 Non-pressure chronic ulcer of other part of unspecified foot with unspecified severity | CPT/HCPCS: 83036 ==

== ENCOUNTER → 2025-03-13 10:54 | Outpatient (BNVA) | payer MEDICARE, SELFPAY | PROVIDERS: PCP Nurse Practitioner Family; Visit Provider Podiatrist Foot & Ankle Surgery | DX: E11.8 Type 2 diabetes mellitus with unspecified complications (principal); L60.3 Nail dystrophy; L84 Corns and callosities; I73.9 Peripheral vascular disease, unspecified; E11.42 Type 2 diabetes mellitus with diabetic polyneuropathy; R60.0 Localized edema; Z89.422 Acquired absence of other left toe(s); Z79.84 Long term (current) use of oral hypoglycemic drugs | CPT/HCPCS: 11055; 11721 ==